=== PATIENT | female | born 1960 | race Caucasian/White ===

== ENCOUNTER → 2020-04-09 13:47 | Outpatient (BNVA) | payer OTHER, SELFPAY | PROVIDERS: PCP Internal Medicine Geriatric Medicine; Visit Provider Surgery | DX: Z76.89 Persons encountering health services in other specified circumstances (principal) ==

== ENCOUNTER → 2020-05-27 10:11 | Outpatient (BNVA) | payer OTHER, SELFPAY | PROVIDERS: PCP Internal Medicine Geriatric Medicine; Visit Provider Physician Assistant | DX: Z76.89 Persons encountering health services in other specified circumstances (principal) ==

== ENCOUNTER 2020-05-27 10:40 | Outpatient (REF) | payer OTHER, SELFPAY ==
[2020-05-31 19:07] LABS: Vitamin A 34 mcg/dL (38-98)
== END 2020-05-27 10:41 | disposition home or self-care (01) ==
LOC: HO.LAB 10:40
PROVIDERS: Visit Provider Surgery
DX: Z01.818 Encounter for other preprocedural examination (principal); E66.9 Obesity, unspecified; Z68.35 Body mass index [BMI] 35.0-35.9, adult; E50.9 Vitamin A deficiency, unspecified
CPT/HCPCS: 84590

== ENCOUNTER 2020-05-31 10:02 | Outpatient (REF) | payer OTHER, SELFPAY ==
--- NOTE | 2020-05-31 10:06 | ECG_ITS ---
Test Reason : SOB Blood Pressure : / mmHG Vent. Rate : 069 BPM Atrial Rate : 069 BPM P-R Int : 180 ms QRS Dur : 076 ms QT Int : 380 ms P-R-T Axes : 079 051 049 degrees QTc Int : 407 ms Normal sinus rhythm Normal ECG When compared with ECG of 21-NOV-2019 12:04, No significant change was found Referred By: Wendy Guerrero Electronically Signed By:ELIUD SEBASTIAN MD
[2020-05-31 10:37] LABS: MANUAL DIFF FLAG NO
[2020-05-31 10:41] LABS: Basophils Absolute Auto 0.1 X10*3/uL (0.0-0.2); Basophils Percent Auto 1.4 % (0-2); Eosinophils Absolute Auto 0.1 X10*3/uL (0.0-0.4); Eosinophils Percent Auto 1.4 % (0-4); Hematocrit 44.3 % (37-47); Hemoglobin 14.1 g/dl (12.0-16.0); Imm Gran Abs Auto 0.01 X10*3/uL (0.00-0.03); Imm Gran Pct Auto 0.2 % (0.0-0.4); Lymphocytes Percent Auto 35.7 % (20-40); Mean Corpuscular HGB Conc 31.8 g/dl (31.0-35.0); Mean Corpuscular Hemoglobin 30.3 pg (27.0-33.0); Mean Corpuscular Volume 95.3 fL (80-98); Mean Platelet Volume 10.7 fL (9.4-12.3); Monocytes Absolute Auto 0.6 X10*3/uL (0.1-1.2); Monocytes Percent Auto 10.6 % (2-11); Neutrophils Absolute Auto 2.9 X10*3/uL (2.0-8.3); Neutrophils Percent Auto 50.7 % (45-73); Platelet Count 321 X10*3/uL (160-400); Red Blood Count 4.65 X10*6/uL (4.20-5.50); Red Cell Distribution Width 13.6 % (11.0-16.0); White Blood Count 5.7 X10*3/uL (4.8-10.8)
[2020-05-31 11:09] LABS: Albumin Level 4.4 g/dL (3.5-5.0); Anion Gap 11 (12-20); Blood Urea Nitrogen 18 mg/dL (9-16); Calcium 9.4 mg/dL (8.4-10.2); Carbon Dioxide 30 mmol/L (22-29); Chloride 103 mmol/L (96-108); Estimated Glomerular Filt Rate > 60; Glucose Random 79 mg/dL (60-115); Potassium 4.3 mmol/l (3.3-5.1); Sodium 140 mmol/L (135-145)
[2020-05-31 11:20] LABS: Glucose Urine UA NEG (NEG); Leukocyte Esterase Urine 2+ (NEG); Nitrite Urine NEG (NEG); Urine Blood NEG (NEG); Urine Ketones NEG (NEG); Urine Protein NEG (NEG-TRACE)
[2020-05-31 11:22] LABS: Appearance Urine HAZY; Color Urine YELLOW
[2020-05-31 11:53] LABS: Estimated Average Glucose 105 mg/dL; Hemoglobin A1c % 5.3 %
[2020-05-31 11:57] LABS: Bacteria Urine TRACE /LPF; Mucus Urine TRACE /LPF; RBC Urine 0-2 /HPF (0); Renal Epithelial Cells Urine TRACE /LPF; Squamous Epithelial Cell Urine 1+ /LPF
== END 2020-05-31 10:03 | disposition home or self-care (01) ==
LOC: HO.LAB 10:02
PROVIDERS: PCP Internal Medicine Geriatric Medicine; Visit Provider Surgery
DX: Z01.818 Encounter for other preprocedural examination (principal); R06.02 Shortness of breath
CPT/HCPCS: 36415; 80048; 81001; 81003; 82040; 83036; 85025; 87086; 93005

== ENCOUNTER 2020-06-05 10:18 | Inpatient (IN) | payer OTHER, SELFPAY ==
[2020-05-31 11:44] VITALS: BP 139/74; PULSE 74; RESP 16; O2SAT 97; BMI 34.8
--- NOTE | 2020-05-31 12:08 | HO.ANESPROP2 ---
Documented by User: Amparo Gibson 05/31/20 12:23 HPI - Anesthesia Eval Consult details Narrative: 59yo F for Gastrectomy Sleeve PMFSH Past Medical History Medical History (Updated 05/31/20 @ 12:36 by Leonora Meneses) Asthma History of GI bleed History of left breast cancer History of sprain of ankle Obesity (BMI 30-39.9) Osteopenia Family History Family History Father Type 2 diabetes mellitus Mother ALS (amyotrophic lateral sclerosis) Brother No problems noted. Sister Hypothyroidism Maternal Grandfather Colon cancer Paternal Aunt Breast cancer Maternal Aunt Thyroid cancer Skin cancer Maternal Aunt Breast cancer Family history of problems with anesthesia: No Surgical History Surgical History (Updated 05/31/20 @ 12:36 by Leonora Meneses) History of classical section History of colonoscopy History of esophagogastroduodenoscopy (EGD) History of lumpectomy of left breast History of Problems with Anesthesia: No (No previous GA) Social History Social History (Updated 05/31/20 @ 12:06 by Leonora Meneses) Alcohol intake: never Smoking Status: Never smoker Narrative Narrative: No recent illness. >4mets with exercise prior to recent ankle injury. Meds Allergies Allergy/AdvReac Type Severity Reaction Status Date / Time No Known Allergies Allergy Verified 05/31/20 12:02 Home Medications Medication Instructions Recorded Confirmed Type ascorbic acid (vitamin C) 1,000 mg 500 mg PO DAILY 04/09/20 05/31/20 History tablet calcium carbonate 500 mg calcium 500 mg PO BID 04/09/20 05/31/20 History (1,250 mg) tablet cholecalciferol (vitamin D3) 25 25 mcg PO DAILY 04/09/20 05/31/20 History mcg (1,000 unit) capsule vitamin A acetate 10,000 unit 10,000 unit PO DAILY tab 04/09/20 05/31/20 History sublingual tablet albuterol sulfate [ProAir HFA] 2 puff INHALATION QID PRN 05/31/20 05/31/20 History Exam Exam Date and Time: May 31, 2020 1208 Height,Weight and Vital Signs: Height 5 ft 4 in Weight 92 kg Last Vital Signs Pulse 74 05/31/20 11:44 Resp 16 05/31/20 11:44 BP 139/74 12/04/20 11:44 Pulse Ox 97 05/31/20 11:44 Pertinent Lab Results Pertinent Lab Results: Laboratory Tests 05/31/20 10:20 Blood Type A Positive Antibody Screen NEGATIVE Laboratory Tests 05/31/20 05/31/20 Unknown Unknown WBC 5.7 Hgb 14.1 Hct 44.3 Plt Count 321 Sodium 140 Potassium 4.3 Chloride 103 Carbon Dioxide 30 H BUN 18 H Creatinine 0.57 Laboratory Tests 05/31/20 05/31/20 10:48 Unknown Hemoglobin A1c % 5.3 Calcium 9.4 Albumin 4.4 Narrative Narrative: EKG 05/31/20: NSR Airway Mallampati Class: II TM Dist: >3cm Neck ROM: Full Loose/Missing/Broken Teeth: No Heart: RRR Lungs: CTAB Assessment and Plan Assessment Anesthesia Assessment: Anesthesia Plan Discussed and PAT Visit Documented by User: Tiffanie Santamaria 06/05/20 08:20 [facility] Past Medical History Medical History (Updated 05/31/20 @ 12:36 by Leonora Meneses) Asthma History of GI bleed History of left breast cancer History of sprain of ankle Obesity (BMI 30-39.9) Osteopenia Family History Family History Father Type 2 diabetes mellitus Mother ALS (amyotrophic lateral sclerosis) Brother No problems noted. Sister Hypothyroidism Maternal Grandfather Colon cancer Paternal Aunt Breast cancer Maternal Aunt Thyroid cancer Skin cancer Maternal Aunt Breast cancer Surgical History Surgical History (Updated 05/31/20 @ 12:36 by Leonora Meneses) History of classical section History of colonoscopy History of esophagogastroduodenoscopy (EGD) History of lumpectomy of left breast Social History Social History (Updated 05/31/20 @ 12:06 by Leonora Meneses) Alcohol intake: never Smoking Status: Never smoker Meds Allergies Allergy/AdvReac Type Severity Reaction Status Date / Time No Known Allergies Allergy Verified 05/31/20 12:02 Home Medications Medication Instructions Recorded Confirmed Type ascorbic acid (vitamin C) 1,000 mg 500 mg PO DAILY 04/09/20 05/31/20 History tablet calcium carbonate 500 mg calcium 500 mg PO BID 04/09/20 05/31/20 History (1,250 mg) tablet cholecalciferol (vitamin D3) 25 25 mcg PO DAILY 04/09/20 05/31/20 History mcg (1,000 unit) capsule vitamin A acetate 10,000 unit 10,000 unit PO DAILY tab 04/09/20 05/31/20 History sublingual tablet albuterol sulfate [ProAir HFA] 2 puff INHALATION QID PRN 05/31/20 05/31/20 History Assessment and Plan Assessment Anesthesia Assessment: Anesthesia Plan Discussed and Chart Reviewed Final Anesthetic Review NPO: Yes ASA Class: II Final Preanesthetic Review: Meds/Allgs Chart Reviewed and Consent Obtained/Reviewed Patient Risk: Low Procedure Risk: Intermediate Anesthetic Plan Anesthetic Plan: GA Disposition: Standard PACU
--- NOTE | 2020-06-04 17:24 | MHC.SHP ---
Pre-Procedural Eval Section B Chief Complaint: morbid obesity Allergies: Allergies Allergy/AdvReac Type Severity Reaction Status Date / Time No Known Allergies Allergy Verified 05/31/20 12:02 Plan Patient has been examined and remains a candidate for the planned procedure
[2020-06-05] VITALS (14 sets, daily range): BP systolic 128–163; BP diastolic 65–82; PULSE 58–84; RESP 16–20; TEMP 36–37; O2SAT 95–100
[2020-06-05 07:59] LABS: COVID-19 Test Negative (Negative)
--- NOTE | 2020-06-05 08:20 | HO.ANESPROP2 ---
[facility] Past Medical History Medical History (Updated 05/31/20 @ 12:36 by Leonora Meneses) Asthma History of GI bleed History of left breast cancer History of sprain of ankle Obesity (BMI 30-39.9) Osteopenia Family History Family History Father Type 2 diabetes mellitus Mother ALS (amyotrophic lateral sclerosis) Brother No problems noted. Sister Hypothyroidism Maternal Grandfather Colon cancer Paternal Aunt Breast cancer Maternal Aunt Thyroid cancer Skin cancer Maternal Aunt Breast cancer Surgical History Surgical History (Updated 05/31/20 @ 12:36 by Leonora Meneses) History of classical section History of colonoscopy History of esophagogastroduodenoscopy (EGD) History of lumpectomy of left breast Social History Social History (Updated 05/31/20 @ 12:06 by Leonora Meneses) Alcohol intake: never Smoking Status: Never smoker Meds Allergies Allergy/AdvReac Type Severity Reaction Status Date / Time No Known Allergies Allergy Verified 05/31/20 12:02 Home Medications Medication Instructions Recorded Confirmed Type ascorbic acid (vitamin C) 1,000 mg 500 mg PO DAILY 04/09/20 05/31/20 History tablet calcium carbonate 500 mg calcium 500 mg PO BID 04/09/20 05/31/20 History (1,250 mg) tablet cholecalciferol (vitamin D3) 25 25 mcg PO DAILY 04/09/20 05/31/20 History mcg (1,000 unit) capsule vitamin A acetate 10,000 unit 10,000 unit PO DAILY tab 04/09/20 05/31/20 History sublingual tablet albuterol sulfate [ProAir HFA] 2 puff INHALATION QID PRN 05/31/20 05/31/20 History Exam Exam Date and Time: June 05, 2020 0820 Height,Weight and Vital Signs: Height 5 ft 4 in Weight 92 kg Last Vital Signs Temp 97.9 F 06/05/20 08:04 Pulse 69 06/05/20 08:04 Resp 16 06/05/20 08:04 BP 152/71 H 06/05/20 08:04 Pulse Ox 98 06/05/20 08:04 Pertinent Lab Results Pertinent Lab Results: Laboratory Tests 05/31/20 06/05/20 10:20 07:30 COVID-19 ([facility]ERA) Negative COVID-19 Clin Com See Note Blood Type A Positive Antibody Screen NEGATIVE Assessment and Plan Assessment Anesthesia Assessment: Anesthesia Plan Discussed and Chart Reviewed Final Anesthetic Review ASA Class: II Final Preanesthetic Review: Meds/Allgs Chart Reviewed, Consent Obtained/Reviewed and Anes Risks/Benef Reviewed Patient Risk: Low Procedure Risk: Intermediate Anesthetic Plan Anesthetic Plan: GA Disposition: Standard PACU
[2020-06-05] MEDS: Lactated Ringers 1,000 ML 100 ML IVCONT (08:38)
--- NOTE | 2020-06-05 11:43 | P.OP_ITS ---
Operative Note Operative Note Date of Service: 06/05/20 Narrative: Patient was brought into the operating room and placed on the operating room table in the supine position. General anesthesia was induced. Normal DVT prophylaxis was instituted and the patient received 2 grams of cefotetan preoperatively. The abdomen was then prepped and draped in the normal sterile fashion. A safety time-out was performed. A mixture of 1% lidocaine with epinephrine and ??% Marcaine plain was used to a nesthetize the planned incision site in the left upper quadrant. A #11 scalpel was used to make a 5 mm left upper quadrant transverse incision through which a veress needle was placed. Three pops were heard going through the fascia. A saline drop test was used to confirm that the veress needle was intraabdominal. An optiview technique was then used to place a 5mm port in the left upper quadrant. A 5 mm 30 degree laproscope was then placed through this port and the abdominal cavity was surveyed and was normal. The patient was placed in reverse Trendelenburg positioning. A dory liver retractor was then placed in the subxyphoid position and it was used to hold up the left lobe of the liver to the abdominal wall. This was secured to the bed using the liver retractor meadows. A HERIBERTO block was then performed for pain control on the right side of the abdomen. A 5 mm port was placed in the right upper quadrant near the falciform ligament. A 12 mm port was then placed in the mid epigastrium. One additional 5 mm port was placed in the left upper quadrant just to the left of the placement of the first port. I then performed a HERIBERTO block on the left side of the abdomen. We were able to easily visualize a large paraesophageal hernia with a portion of the stomach in the chest. I then removed the epigastric fat pad . We cleared the free no esophageal ligament circumferentially. We placed 1/3 of a Kavita drain around the GE junction and secured the 2 ends using a Endo loop. Once we visualized the crura posteriorly we reapproximated the right and left crura posteriorly with a total of 220 Ethibond sutures. We then reapproximated the anterior crura with 220 Ethibond sutures. There was no residual hiatal hernia. We then gained entry into the lesser sac about 4-5 cm from the pylorus. I had anesthesia place a 34 Togolese orogastric tube into the distal antrum to use as a sizing tool for gastric pouch size. I divided the short gastric vessels up to the angle of His. We then started the creation of the gastric pouch by firing a 60 mm purple load endostapler up the stomach about 4-5 cm from the pylorus. We completed the creation of the gastric pouch using a total of 4 firings of a 60 mm and 1 firing of a 45 mm purple load stapler. We had anesthesia remove the orogastric tube, then we clamped across the distal antrum using a fired 60 mm endostapler. We flattened the patient and then instilled normal saline surrounding the newly created staple line. I then performed an on-table endoscopy. I passed the gastroscopy into the posterior oropharynx and down the esophagus evaluating the esophageal mucosa which was normal. There was no evidence of hiatal hernia. I passed the gastroscope into the gastric pouch and insufflated the gastric pouch. There was healthy pink mucosa and no evidence of active bleeding. There was no evidence of leak on laparoscopy. I desufflated the gastric pouch and removed the endoscope. I removed the endostapler from the abdomen and suctioned the fluid from the left upper quadrant. I then removed the partial gastrectomy specimen through the epigastric 12 mm port site. I reapproximated the 12 mm port using a 0 maxon suture with a laparoscopic suture passer. I instilled local anesthetic into the fascial closure site and tied the suture down at a pressure of 8-10 mm of Hg. There was no residual fascial defect. We removed the liver retractor and the left upper quadrant 5 mm ports under direct visualization. There was no evidence of any active bleeding. I desufflated the abdomen through the last remaining port and removed the laparoscope and 5 mm port. We reapproximated all incisions with a 4-0 monocryl subcuticular stitch. We cleaned and dried the abdominal skin and applied dermabond skin glue. All count were correct at the end of the case. The patient was awake and in stable condition prior to extubation and transfer to the recovery room.
--- NOTE | 2020-06-05 11:48 | P.BOP_ITS ---
Brief Operative Note Date of Service: 06/05/20 Pre-op diagnosis: obesity BMI 34.8 and history of left breast cancer Post-op diagnosis: other ( same and large paraesophageal hernia) Procedure: laparoscopic sleeve gastrectomy, repair of large paraesophageal hernia, Jermain block, and intraoperative endoscopy Implants: none Surgeon: Wendy Guerrero MD Anesthesia: GETA Dieing Out Machine Operator: Ava Adan Estimated blood loss (mL): 10 Pathology: other ( partial gastrectomy) Condition: stable Disposition: PACU
[2020-06-05] MEDS: Famotidine/PF 20 MG/2 ML VIAL IVPUSH ×2 (12:14→21:09)
[2020-06-05] MEDS: ondansetron HCL 4 MG/2 ML VIAL IVPUSH ×2 (13:03→21:09)
[2020-06-05] MEDS: Metoclopramide HCl 10 MG/2 ML VIAL IVPUSH (13:03)
[2020-06-05] MEDS: Lactated Ringers 1,000 ML 125 ML IVCONT ×2 (13:52→21:07)
[2020-06-05 15:05] LABS: Basophils Percent Auto 0.2 % (0-2); Hematocrit 41.7 % (37-47); Hemoglobin 13.2 g/dl (12.0-16.0); Imm Gran Abs Auto 0.08 X10*3/uL (0.00-0.03); Imm Gran Pct Auto 0.5 % (0.0-0.4); Lymphocytes Absolute Auto 0.6 X10*3/uL (1.2-4.9); Lymphocytes Percent Auto 3.8 % (20-40); MANUAL DIFF FLAG SCAN; Mean Corpuscular HGB Conc 31.7 g/dl (31.0-35.0); Mean Corpuscular Hemoglobin 30.7 pg (27.0-33.0); Mean Platelet Volume 10.3 fL (9.4-12.3); Monocytes Absolute Auto 0.4 X10*3/uL (0.1-1.2); Monocytes Percent Auto 2.9 % (2-11); Neutrophils Absolute Auto 13.9 X10*3/uL (2.0-8.3); Neutrophils Percent Auto 92.6 % (45-73); Platelet Count 309 X10*3/uL (160-400); Red Cell Distribution Width 13.6 % (11.0-16.0); SCAN SMEAR FLAG 1
[2020-06-05 15:32] LABS: SLIDE REVIEW VERIFIED
[2020-06-05 15:35] LABS: Anion Gap 16 (12-20); Blood Urea Nitrogen 15 mg/dL (9-16); Calcium 8.7 mg/dL (8.4-10.2); Carbon Dioxide 26 mmol/L (22-29); Chloride 102 mmol/L (96-108); Creatinine Clr Calc Pharmacy 102.1; Estimated Glomerular Filt Rate > 60; Glucose Random 138 mg/dL (60-115); Potassium 3.9 mmol/l (3.3-5.1); Sodium 140 mmol/L (135-145)
[2020-06-05] MEDS: 0.9 % Sodium Chloride Flush 3 ML SYRINGE IVFLUSH (21:09)
[2020-06-06 03:13] VITALS: BP 153/72; PULSE 69; RESP 19; TEMP 36.3; O2SAT 95
[2020-06-06 04:25] LABS: MANUAL DIFF FLAG NO
[2020-06-06 04:26] LABS: Basophils Percent Auto 0.2 % (0-2); Hematocrit 36.2 % (37-47); Hemoglobin 11.7 g/dl (12.0-16.0); Imm Gran Abs Auto 0.04 X10*3/uL (0.00-0.03); Imm Gran Pct Auto 0.3 % (0.0-0.4); Lymphocytes Percent Auto 16.1 % (20-40); Mean Corpuscular HGB Conc 32.3 g/dl (31.0-35.0); Mean Corpuscular Hemoglobin 30.6 pg (27.0-33.0); Mean Corpuscular Volume 94.8 fL (80-98); Mean Platelet Volume 10.4 fL (9.4-12.3); Monocytes Absolute Auto 1.5 X10*3/uL (0.1-1.2); Monocytes Percent Auto 12.1 % (2-11); Neutrophils Absolute Auto 8.8 X10*3/uL (2.0-8.3); Neutrophils Percent Auto 71.3 % (45-73); Platelet Count 291 X10*3/uL (160-400); Red Blood Count 3.82 X10*6/uL (4.20-5.50); Red Cell Distribution Width 13.5 % (11.0-16.0); White Blood Count 12.4 X10*3/uL (4.8-10.8)
[2020-06-06] MEDS: ondansetron HCL 4 MG/2 ML VIAL IVPUSH (04:39)
[2020-06-06 04:45] LABS: Anion Gap 13 (12-20); Blood Urea Nitrogen 9 mg/dL (9-16); Calcium 8.5 mg/dL (8.4-10.2); Carbon Dioxide 27 mmol/L (22-29); Chloride 103 mmol/L (96-108); Creatinine Clr Calc Pharmacy 129.5; Estimated Glomerular Filt Rate > 60; Glucose Random 98 mg/dL (60-115); Potassium 4.2 mmol/l (3.3-5.1); Sodium 139 mmol/L (135-145)
[2020-06-06] MEDS: Lactated Ringers 1,000 ML 125 ML IVCONT (05:48)
[2020-06-06] MEDS: Famotidine/PF 20 MG/2 ML VIAL IVPUSH (07:55)
[2020-06-06 08:00] VITALS: BP 142/65; PULSE 78; RESP 19; TEMP 36.7; O2SAT 94
--- NOTE | 2020-06-06 09:51 | HO.POSTANES ---
Post Anesthesia Evaluation Post Anesthesia Evaluation Vital Signs: Vital Signs Temp Pulse Resp BP Pulse Ox 06/06/20 08:00 98.1 F 78 19 142/65 H 94 06/06/20 03:13 97.4 F 69 19 153/72 H 95 06/05/20 23:52 98.6 F 77 19 163/73 H 96 Anesthesia: General Endotracheal-GETA Mental Status: Awake Pain Control: Satisfactory Nausea/Vomiting: None Hydration: Adequate Anesthesia-Related Issues: No Anes. Related Issues
--- NOTE | 2020-06-06 10:26 | PM.PNGS ---
Subjective Subjective Date of Service: 06/06/20 Interval history: Pod #1 s/p lap sleeve gastrectomy and paraesophageal hernia repair. Doing well. Tolerating stage 3 diet, ambulating in hallway. Pain well controlled. Denies nausea or vomiting. Vitals and labs reviewed and are within limit for post op day 1. On exam, patient is well appearing, abdomen is soft, nd, mild appropriate incisional tenderness. Incisions c/d/I with dermabond in place. Plan: d/c home today. Follow up with me in 2 weeks. Physical Exam Vital Signs: Vital Signs: Last Vital Signs Temp 98.1 F 06/06/20 08:00 Pulse 78 06/06/20 08:00 Resp 19 06/06/20 08:00 BP 142/65 H 06/06/20 08:00 Pulse Ox 94 06/06/20 08:00 Body Mass Index 34.8 Const: General: cooperative, healthy appearing, comfortable, no acute distress and awake GI: Inspection: Yes incision (c/d/i with dermabond in place) and Yes obesity Palpation (GI): Soft to palpation and Tenderness to palpation present (GI) (mild appropriate) Extrem: General: Yes normal to inspection, Yes no pedal edema and Yes no calf tenderness Progress Note: A&P Assessment and plan (1) History of sleeve gastrectomy: Status: Acute Assessment and Plan: Patient is postop day 1. Status post laparoscopic sleeve gastrectomy and paraesophageal hernia repair doing well tolerating stage III diet. Patient will be discharged home to follow up with me in 2 weeks time frame. (2) Status post repair of paraesophageal diaphragmatic hernia: Status: Acute Fall Risk Details Current Medications: Current Medications Generic Name Dose Route Start Last Admin Trade Name Freq PRN Reason Stop Dose Admin Albuterol Sulfate 2 puff 06/05/20 11:52 Albuterol Sulfate 90 Mcg 8 Gm Inhaler INHALE QID PRN wheezing Famotidine 20 mg 06/05/20 12:00 06/06/20 07:55 Famotidine/Pf 20 Mg/2 Ml Vial IVPUSH 20 mg BID CHRISTIAN Administration Fentanyl 50 mcg 06/05/20 08:27 Fentanyl Citrate/Pf 100 Mcg/2 Ml Vial IVPUSH Q5M PRN Pain, Severe (Pain Scale 7-10) Fentanyl 25 mcg 06/05/20 08:27 Fentanyl Citrate/Pf 100 Mcg/2 Ml Vial IVPUSH Q5M PRN Pain, Moderate (Pain Scale 4-6 Hydromorphone HCl 0.25 mg 06/05/20 11:44 Hydromorphone Hcl 0.5 Mg/0.5 Ml Syringe IVPUSH Q4H PRN Pain, Moderate (Pain Scale 4-6 Lactated Ringer's 1,000 mls @ 125 mls/hr 06/05/20 07:30 06/06/20 05:48 Lr IVCONT 125 mls/hr .Q8H CHRISTIAN Administration Acetaminophen 1,000 mg in 100 mls @ 16.7 mls/hr 06/05/20 11:45 06/06/20 09:30 Ofirmev IV Infused .Q6H CHRISTIAN Infusion Metoclopramide HCl 10 mg 06/05/20 11:44 06/05/20 13:03 Metoclopramide Hcl 10 Mg/2 Ml Vial IVPUSH 10 mg Q6H PRN Administration Nausea Ondansetron HCl 4 mg 06/05/20 11:45 06/06/20 04:39 Ondansetron Hcl 4 Mg/2 Ml Vial IVPUSH 4 mg Q8H CHRISTIAN Administration Sodium Chloride 3 ml 06/05/20 16:00 06/06/20 07:13 0.9 % Sodium Chloride Flush 3 Ml Syringe IVFLUSH Not Given QSHIFT CHRISTIAN Time Spent With Patient Time: Total time spent is greater than 50% in coordination of care (as documented) at patient's floor/unit and/or counseling patient: Time with patient: less than 15 minutes
--- NOTE | 2020-06-06 11:11 | MHC.CM.PN ---
ADMITTED S/P GASTRIC SLEEVE AND HERNIA REPAIR, DSISCHARGE PLAN HOME W/NO SERVICES, TO TRANSPORT. CM TO UPDATE PCP
--- NOTE | 2020-06-06 11:52 | MHC.CM.PN ---
DISCHARGE NOTE: PT DISCHARGED HOME/ SELF-CARE
--- NOTE | 2020-06-25 11:16 | PM.DS ---
DS: Providers Provider Date of admission: 06/05/20 10:18 Primary care physician: Enedina Antunez DS: Diagnosis Discharge Diagnosis (1) History of sleeve gastrectomy: Status: Acute Problem details: with hiatal hernia repair - 06/05/2020 (2) Status post repair of paraesophageal diaphragmatic hernia: Status: Acute DS: Medications Discharge Medications Home Medications: Home Medications Medication Instructions Recorded Confirmed albuterol sulfate [ProAir HFA] 2 puff INHALATION QID PRN 05/31/20 06/18/20 calcium citrate 1,000 mg tablet 1,000 mg PO BID tab 06/18/20 06/18/20 DS: Summary Time Spent with Patient Time attestation: DATE OF SERVICE: June 05, 2020 ADMITTING DIAGNOSES: morbid obesity and hiatal hernia DISCHARGE DIAGNOSES: same PROCEDURE PERFORMED: s/p laparoscopic sleeve gastrectomy and repair of hiatal hernia DISCHARGE MEDICATIONS: 1. Simethicone 80mg q4h prn gas 2. Ondansetron 4mg po tid prn nausea 3. Famotidine 20mg po bid 4. Docusate sodium 100mg po bid DISCHARGE INSTRUCTIONS: The patient should continue on the stage III bariatric diet, which includes 3 protein shakes of at least 20- 30g of protein on a daily basis. The patient was encouraged to avoid drinking liquids with her protein shakes. She should wait 30-45 minutes in between her meals and drinking water. She should drink at least 40-60 ounces of water on a daily basis. She should ambulate while at home to avoid any blood clots in her lower extremities. She should call with any questions or concerns such as increase in abdominal pain, persistent nausea, vomiting, redness and drainage from her incisions, fever, chills, shortness of breast, or chest pain beyond what is normal for her. The patient should avoid all heavy lifting greater than 5 pounds for the next 4 weeks. The patient is already scheduled to follow up with me in 2 weeks' time, but should call the office with any questions prior to that follow up appointment. The patient should not advance her diet until she is seen in the office for the 2 week appointment. HOSPITAL COURSE: The patient was admitted after undergoing laparoscopic sleeve gastrectomy. She was started on stage II diet and was tolerating well without nausea or vomiting. Her pain was controlled on IV Dilaudid. All labs were within normal limits. On post-operative day #2 she was feeling better, nausea and epigastric pain improved and she was tolerating stage III bariatric diet well. She was discharged home. DISCHARGE DISPOSITION: Home.Total time spent providing and/or coordinating discharge services: 30 minutes Physical Exam Vital Signs: Vital Signs: Last Vital Signs Temp 98.1 F 06/06/20 08:00 Pulse 78 06/06/20 08:00 Resp 19 06/06/20 08:00 BP 142/65 H 06/06/20 08:00 Pulse Ox 94 06/06/20 08:00 Body Mass Index 34.8 DS: Data Data Completed and Pending Completed studies during hospitalization [Text1]: Pending at discharge 06/05/20 10:04 Surgical [PTH] Routine Procedures Excision of Stomach, Percutaneous Endoscopic Approach, Vertical (06/05/20) Repair Diaphragm, Percutaneous Endoscopic Approach (06/05/20) Labs on day of discharge: 05/31/20 10:20 Type and Screen Routine 06/05/20 07:25 Acetaminophen [Ofirmev] 1,000 mg in 100 ml IV PREOP Albuterol Sulfate (0.083%) [Ventolin (0.083%)] 2.5 mg INHALE ONCE PRN cefoTEtan disod/Dextrose,Iso [Cefotan] 2 gm in 50 ml IV PREOP 06/05/20 07:30 COVID-19 ID NOW (Ramirez) Stat Lactated Ringers [Lr] 1,000 ml IVCONT 100 mls/hr Lactated Ringers [Lr] 1,000 ml IVCONT 125 mls/hr 06/05/20 08:07 cefoTEtan disodium [Cefotan] 2 gm .ROUTE .STK-MED ONE 06/05/20 08:08 Acetaminophen [Ofirmev] 1,000 mg in 100 ml IV As directed 06/05/20 08:27 Continuous pulse oximetry CONT Oxygen administration Simple Mask 6 lpm Vital Signs Q1H Vital Signs Q5MIN Acetaminophen [Tylenol] 650 mg PO ONCE PRN Albuterol Sulfate (0.083%) [Ventolin (0.083%)] 2.5 mg INHALE ONCE PRN Promethazine HCL [Phenergan] 6.25 mg 0.9 % Sodium Chloride [Ns] 50 ml IV ONCE fentaNYL citrate/PF [Sublimaze] 25 mcg IVPUSH Q5M PRN fentaNYL citrate/PF [Sublimaze] 50 mcg IVPUSH Q5M PRN oxyCODONE HCl Immed Release [Roxicodone] 10 mg PO ONCE PRN oxyCODONE HCl Immed Release [Roxicodone] 5 mg PO ONCE PRN 06/05/20 08:47 Ketamine HCl/NS 50 mg IVPUSH .STK-MED ONE Lidocaine HCl 2 % MPF [Xylocaine 2 % MPF] 5 ml .ROUTE .STK-MED ONE Midazolam HCl/PF [Versed] 2 mg .ROUTE .STK-MED ONE Rocuronium [place] [Zemuron] 100 mg IV .STK-MED ONE dexAMETHasone sod phosphate [Decadron] 4 mg .ROUTE .STK-MED ONE fentaNYL citrate/PF [Sublimaze] 50 mcg .ROUTE .STK-MED ONE ondansetron HCL [Zofran] 4 mg .ROUTE .STK-MED ONE propofoL [Diprivan] 200 mg IVPUSH .STK-MED ONE 06/05/20 08:48 Sugammadex Sodium [Bridion] 200 mg IVPUSH .STK-MED ONE Transfer Order Routine 06/05/20 08:51 Bupivacaine MPF 0.25 % [Sensorcaine-MPF 0.25% 10 ML] 10 ml .ROUTE .STK-MED ONE Lidocaine HCl 1%/Epi 1:100,000 [Xylocaine 1 %-Epi 1:100,000] 20 ml .ROUTE .STK-MED ONE 06/05/20 09:21 fentaNYL citrate/PF [Sublimaze] 50 mcg .ROUTE .STK-MED ONE 06/05/20 Breakfast NPO Diet 06/05/20 10:04 Surgical [PTH] Routine 06/05/20 11:44 Ambulate Q4H WHILE AWAKE Compression Therapy QSHIFT Head of bed elevation DIRECTED Incentive Spirometry Q1HR WHILE AWAKE Intake and Output Q4HR Up ad jeyson .Continous Vital Signs Q4H Code Status Routine HYDROmorphone HCl [Dilaudid] 0.25 mg IVPUSH Q4H PRN Metoclopramide HCl [Reglan] 10 mg IVPUSH Q6H PRN 06/05/20 11:45 Acetaminophen [Ofirmev] 1,000 mg in 100 ml IV 16.7 mls/hr ondansetron HCL [Zofran] 4 mg IVPUSH Q8H 06/05/20 11:52 Albuterol Sulfate [Ventolin] 2 puff INHALE QID PRN 06/05/20 11:56 Promethazine HCL [Phenergan] 25 mg IV .STK-MED ONE 06/05/20 11:57 Famotidine/PF [Pepcid/PF] 20 mg IVPUSH .STK-MED ONE 06/05/20 12:00 Famotidine/PF [Pepcid/PF] 20 mg IVPUSH BID 06/05/20 13:01 Metoclopramide HCl [Reglan] 10 mg .ROUTE .STK-MED ONE ondansetron HCL [Zofran] 4 mg .ROUTE .STK-MED ONE 06/05/20 14:46 Basic Metabolic Panel DAILY@0500 Complete Blood Count Auto Diff DAILY@0500 SLIDE REVIEW Routine 06/05/20 Lunch Bariatric Phase 2 Diet 06/05/20 16:00 0.9 % Sodium Chloride Flush [NS Flush] 3 ml IVFLUSH QSHIFT 06/05/20 20:59 cefoTEtan disodium [Cefotan] 2 gm .ROUTE .STK-MED ONE 06/05/20 21:00 cefoTEtan disodium [Cefotan] 2 gm 0.9 % Sodium Chloride [Ns] 100 ml IV POSTOP@2100 06/06/20 04:08 Basic Metabolic Panel DAILY@0500 Complete Blood Count Auto Diff DAILY@0500 Laboratory Last Values WBC 12.4 X10*3/uL (4.8-10.8) H 06/06/20 04:08 RBC 3.82 X10*6/uL (4.20-5.50) L 06/06/20 04:08 Hgb 11.7 g/dl (12.0-16.0) L 06/06/20 04:08 Hct 36.2 % (37-47) L 06/06/20 04:08 MCV 94.8 fL (80-98) 06/06/20 04:08 MCH 30.6 pg (27.0-33.0) 06/06/20 04:08 MCHC 32.3 g/dl (31.0-35.0) 06/06/20 04:08 RDW 13.5 % (11.0-16.0) 06/06/20 04:08 Plt Count 291 X10*3/uL (160-400) 06/06/20 04:08 MPV 10.4 fL (9.4-12.3) 06/06/20 04:08 Immature Gran % (Auto) 0.3 % (0.0-0.4) 06/06/20 04:08 Neut % (Auto) 71.3 % (45-73) 06/06/20 04:08 Lymph % (Auto) 16.1 % (20-40) L 06/06/20 04:08 [place] % (Auto) 12.1 % (2-11) H 06/06/20 04:08 Eos % (Auto) 0.0 % (0-4) 06/06/20 04:08 Baso % (Auto) 0.2 % (0-2) 06/06/20 04:08 Lymph # (Auto) 2.0 X10*3/uL (1.2-4.9) 06/06/20 04:08 [place] # (Auto) 1.5 X10*3/uL (0.1-1.2) H 06/06/20 04:08 Eos # (Auto) 0.0 X10*3/uL (0.0-0.4) 06/06/20 04:08 Baso # (Auto) 0.0 X10*3/uL (0.0-0.2) 06/06/20 04:08 Abs Immat Gran (auto) 0.04 X10*3/uL (0.00-0.03) H 06/06/20 04:08 Absolute Neuts (auto) 8.8 X10*3/uL (2.0-8.3) H 06/06/20 04:08 Absolute Nucleated RBC 0.000 X10*3/uL (0.0-0.012) 06/06/20 04:08 Nucleated RBC % (auto) 0.0 /100WBC (0.0-0.2) 06/06/20 04:08 Smear Tech's Comments VERIFIED 06/05/20 14:46 Sodium 139 mmol/L (135-145) 06/06/20 04:08 Potassium 4.2 mmol/l (3.3-5.1) 06/06/20 04:08 Chloride 103 mmol/L (96-108) 06/06/20 04:08 Carbon Dioxide 27 mmol/L (22-29) 06/06/20 04:08 Anion Gap 13 (-20) 06/06/20 04:08 BUN 9 mg/dL (9-16) 06/06/20 04:08 Creatinine 0.52 mg/dL (0.5-1.4) 06/06/20 04:08 Estim Creat Clear Calc 129.5 06/06/20 04:08 Estimated GFR > 60 06/06/20 04:08 Random Glucose 98 mg/dL (60-115) 06/06/20 04:08 Calcium 8.5 mg/dL (8.4-10.2) 06/06/20 04:08 COVID-19 (SERA) Negative (Negative) 06/05/20 07:30 COVID-19 Clin Com See Note 06/05/20 07:30 Blood Type A Positive 05/31/20 10:20 Antibody Screen NEGATIVE 05/31/20 10:20 Discharge Plan Discharge Anticipated Discharge Date/Time: 06/06/20 11:52 Patient Disposition: Home, Self-Care Referrals: Enedina Antunez [Primary Care Provider] - Discharge Medications: Continued albuterol sulfate [ProAir HFA] 90 mcg/actuation HFA aerosol inhaler 2 puff inhalation QID PRN (Reason: wheezing) RF: 0 Discontinued calcium carbonate 500 mg calcium (1,250 mg) tablet 500 mg PO BID RF: 0 cholecalciferol (vitamin D3) 25 mcg (1,000 unit) capsule 25 mcg PO DAILY RF: 0 vitamin A acetate 10,000 unit tablet, sublingual 10,000 unit PO DAILY RF: 0 ascorbic acid (vitamin C) 1,000 mg tablet 500 mg PO DAILY RF: 0 No Action calcium citrate 1,000 mg tablet 1,000 mg PO BID RF: 0 Discharge Orders: Discharge Order (Routine); Ordered 06/06/20 Ordered By: Wendy Guerrero Activity on Discharge: No heavy lifting Discharge Date/Time: 06/06/20 11:52 Activity Restrictions/Additional Instructions: No tub baths, sex or returning to work until discussed at first post op appointment. No exercise, alcohol, tobacco or illegal drug use. Continue to use incentive spirometer hourly while awake. Walk in home for 5- 10 minutes every 2 hours during the first week. Continue phase 3 diet until first post op appointment. Follow all instructions in the bariatric handbook and call with any questions.Discharge Instructions 1. Please call your doctor or come back to the emergency room should any new symptoms arise. 2. You will receive a courtesy call from [facility] 24-48 hours after discharge. 3. Activity: abstain from alcohol, practice limited stair climbing, no bending, no driving, no exercise, no illicit substances, no lifting, no sex, no tub bath, no work. 4. Diet: continue stage 3 protein shakes until your [address] Guerrero. 5. Dressing Change/Wound Care: Your incision is covered by surgical glue. If the area is tender, you may apply an ice pack for short intervals (no more than 20 minutes on, followed by at least 20 minutes off). Do not apply heat. Do not use creams, lotions, or topical antibiotics unless instructed to do so by your surgeon. These can cause infection or allergic reaction. 6. Call your doctor if: - Your temperature exceeds 101.5 F - You experience excessive pain or swelling - You have an unexpected reaction to medication - You have excessive bleeding - You experience continued vomiting/nausea - Your incision begins to separate - Your incision shows signs of infection such as increased redness, swelling, excessive pain, heat, or drainage (light blood or clear fluid is normal) 7. General instructions: No lifting greater than 5 lbs for the next [address] within 24 hours of taking narcotic pain medications. If you do not move your bowels in the next 2 days, please take milk of magnesia over the counter. Please follow the post op diet and do not advance your diet until you are seen in the office in about 2 weeks. Please walk around your home every hour or two to prevent blood clots from forming in your legs. You do not need to wake from sleeping to walk. Please sleep in a bed or couch to prevent kinking at the hips and knees. Please take your incentive spirometer (your lung regulatory law specialist) home with you and use it for the next few days to prevent pneumonias. You may shower, no hot tubs, baths or swimming pools. Please call the office with any questions or concerns such as increasing abdominal pain, fever, chills, shortness of breath, chest pain, leg pain or swelling, or redness or drainage from your incisions. Please stay on stage 3 diet which includes sugar free clear liquids such as ice pops and jello and broth and crystal light. Avoid all carbonation. Please drink 3 protein shakes with at least 25-30 grams of protein daily or 3 of the Celebrate 4:1 shakes which can be purchased in our office. The Celebrate shakes have all of the bariatric vitamins you need if you consume these shakes. If you are drinking other protein shakes, you will need to purchase the Celebrate multivitamins and calcium that we provide in the office (they will provide all the vitamins you need). Please make sure you are consuming at least 40-60 ounces of water in addition to your 3 protein shakes daily. Do not hesitate to contact the office with any questions at . DATE OF SERVICE: June 05, 2020 ADMITTING DIAGNOSES: obesity and GERD DISCHARGE DIAGNOSES: same, s/p laparoscopic sleeve gastrectomy and paraesophageal hernia repair PROCEDURE PERFORMED: laparoscopic sleeve gastrectomy and paraesophageal hernia repair DISCHARGE MEDICATIONS: 1. Simethicone 80mg q4h prn gas 2. Ondansetron 4mg po tid prn nausea 3. Famotidine 20mg po bid 4. Docusate sodium 100mg po bid DISCHARGE INSTRUCTIONS: The patient should continue on the stage III bariatric diet, which includes 3 protein shakes of at least 20- 30g of protein on a daily basis. The patient was encouraged to avoid drinking liquids with her protein shakes. She should wait 30-45 minutes in between her meals and drinking water. She should drink at least 40-60 ounces of water on a daily basis. She should ambulate while at home to avoid any blood clots in her lower extremities. She should call with any questions or concerns such as increase in abdominal pain, persistent nausea, vomiting, redness and drainage from her incisions, fever, chills, shortness of breast, or chest pain beyond what is normal for her. The patient should avoid all heavy lifting greater than 5 pounds for the next 4 weeks. The patient is already scheduled to follow up with me in 2 weeks' time, but should call the office with any questions prior to that follow up appointment. The patient should not advance her diet until she is seen in the office for the 2 week appointment. HOSPITAL COURSE: The patient was admitted after undergoing laparoscopic sleeve gastrectomy. She was started on stage II diet and was tolerating well without nausea or vomiting. Her pain was controlled on IV Dilaudid. All labs were within normal limits. On post-operative day #2 she was feeling better, nausea and epigastric pain improved and she was tolerating stage III bariatric diet well. She was discharged home. DISCHARGE DISPOSITION: Home. Visit Report Forms: Patient Portal Discharge page Care Plan Goals: weight loss Health Concerns: obesity Plan of Treatment: see discharge instructions
== END 2020-06-06 11:52 | disposition home or self-care (01) | DRG 621 ==
LOC: HO.SSSA 11:56 → HO.S3 12:26
PROVIDERS: Nurse Practitioner; Physician Assistant; Admitting Provider Surgery; Visit Provider Surgery
PROC: 0DB64Z3 Excision of Stomach, Percutaneous Endoscopic Approach, Vertical (ICD-10-PCS; CPT 43845; principal; 2020-06-05 08:30)
DX: E66.9 Obesity, unspecified (principal); Z20.828 Contact with and (suspected) exposure to other viral communicable diseases; Z68.34 Body mass index [BMI] 34.0-34.9, adult; K44.9 Diaphragmatic hernia without obstruction or gangrene
CPT/HCPCS: 36415; 80048; 85025; 86850; 86900; 86901; 87635; 88307; 88342; 99024; C1776; J0131; J1100; J2250; J2405; J2765; J3010

== ENCOUNTER → 2020-06-18 13:51 | Outpatient (BNVA) | payer OTHER, SELFPAY | PROVIDERS: Visit Provider Surgery | DX: Z76.89 Persons encountering health services in other specified circumstances (principal) ==

== ENCOUNTER → 2020-07-04 14:12 | Outpatient (BNVA) | payer OTHER, SELFPAY | PROVIDERS: Visit Provider Surgery | DX: Z76.89 Persons encountering health services in other specified circumstances (principal) ==

== ENCOUNTER → 2020-08-13 10:46 | Outpatient (BNVA) | payer OTHER, SELFPAY | PROVIDERS: PCP Internal Medicine Geriatric Medicine; Visit Provider Dietitian, Registered ==

== ENCOUNTER → 2020-09-23 13:39 | Outpatient (BNVA) | payer OTHER, SELFPAY | PROVIDERS: PCP Internal Medicine Geriatric Medicine; Visit Provider Surgery ==

== ENCOUNTER 2020-12-02 10:50 | Outpatient (REF) | payer OTHER, SELFPAY ==
[2020-12-02 12:35] LABS: MANUAL DIFF FLAG NO
[2020-12-02 12:41] LABS: Basophils Absolute Auto 0.1 X10*3/uL (0.0-0.2); Basophils Percent Auto 1.6 % (0-2); Eosinophils Absolute Auto 0.1 X10*3/uL (0.0-0.4); Eosinophils Percent Auto 1.9 % (0-4); Hematocrit 42.9 % (37-47); Hemoglobin 13.8 g/dl (12.0-16.0); Imm Gran Abs Auto 0.01 X10*3/uL (0.00-0.03); Imm Gran Pct Auto 0.2 % (0.0-0.4); Lymphocytes Absolute Auto 2.4 X10*3/uL (1.2-4.9); Lymphocytes Percent Auto 38.5 % (20-40); Mean Corpuscular HGB Conc 32.2 g/dl (31.0-35.0); Mean Corpuscular Hemoglobin 31.4 pg (27.0-33.0); Mean Corpuscular Volume 97.5 fL (80-98); Mean Platelet Volume 10.6 fL (9.4-12.3); Monocytes Absolute Auto 0.7 X10*3/uL (0.1-1.2); Monocytes Percent Auto 10.3 % (2-11); Neutrophils Percent Auto 47.5 % (45-73); Platelet Count 322 X10*3/uL (160-400); Red Cell Distribution Width 13.5 % (11.0-16.0); White Blood Count 6.3 X10*3/uL (4.8-10.8)
[2020-12-02 13:13] LABS: Estimated Average Glucose 105 mg/dL; Hemoglobin A1c % 5.3 %
[2020-12-02 13:41] LABS: Alanine Aminotransferase < 6 U/L (0-31); Albumin Level 4.4 g/dL (3.5-5.0); Alkaline Phosphatase 90 U/L (39-117); Anion Gap 13 (12-20); Aspartate Amino Transferase 20 U/L (5-31); Bilirubin Total 0.7 mg/dL (0.0-1.0); Blood Urea Nitrogen 18 mg/dL (9-16); C Reactive Protein 0.11 mg/dL (< or = 0.50); Calcium 9.7 mg/dL (8.4-10.2); Carbon Dioxide 28 mmol/L (22-29); Chloride 105 mmol/L (96-108); Cholesterol 188 mg/dL; Estimated Glomerular Filt Rate > 60; Glucose Fasting 81 mg/dL (60-99); HDL Cholesterol 83 mg/dL; Iron 102 mcg/dL (30-160); LDL Cholesterol Calculated 95 mg/dl; Percent Iron Saturation 34 % (15-50); Potassium 4.3 mmol/L (3.3-5.1); Sodium 142 mmol/L (135-145); Total Iron Binding Capacity 302 mcg/dL (228-428); Total Protein 7.4 g/dL (6.5-8.0); Triglycerides 53 mg/dL; Unsaturated Iron Binding 200 ug/dL
[2020-12-02 13:43] LABS: Vitamin B12 604 pg/mL (200-900)
[2020-12-02 13:44] LABS: Thyroid Stimulating Hormone 0.56 uIU/mL (0.32-4.0); Vitamin D 25-OH Total 42.6 ng/mL (>30)
[2020-12-05 00:36] LABS: Zinc 77 mcg/dL (60-130)
[2020-12-05 22:06] LABS: Vitamin A 36 mcg/dL (38-98)
[2020-12-06 13:26] LABS: Vitamin B1 18 nmol/L (8-30)
== END 2020-12-02 10:51 | disposition home or self-care (01) ==
LOC: HO.LAB 10:50
PROVIDERS: PCP Internal Medicine Geriatric Medicine; Visit Provider Surgery
DX: Z01.818 Encounter for other preprocedural examination (principal); K91.2 Postsurgical malabsorption, not elsewhere classified; E66.3 Overweight; Z68.26 Body mass index [BMI] 26.0-26.9, adult; Z90.3 Acquired absence of stomach [part of]
CPT/HCPCS: 36415; 80053; 80061; 82306; 82607; 83036; 83540; 84425; 84443; 84590; 84630; 85025; 86140

== ENCOUNTER → 2020-12-31 08:23 | Outpatient (BNVA) | payer OTHER, SELFPAY | PROVIDERS: PCP Internal Medicine Geriatric Medicine; Visit Provider Dietitian, Registered | DX: E66.3 Overweight (principal); Z68.26 Body mass index [BMI] 26.0-26.9, adult | CPT/HCPCS: 97803 ==

== ENCOUNTER 2021-02-24 10:15 | Outpatient (REF) | payer OTHER, SELFPAY ==
[2021-02-24 13:48] LABS: Glucose Urine UA NEG (NEG); Leukocyte Esterase Urine NEG (NEG); Nitrite Urine NEG (NEG); Specific Gravity - Urine 1.015 (1.005-1.025); Urine Blood NEG (NEG); Urine Ketones NEG (NEG); Urine Protein NEG (NEG-TRACE)
[2021-02-24 13:50] LABS: Appearance Urine CLEAR; Color Urine YELLOW
[2021-02-28 00:36] LABS: Vitamin A 31 mcg/dL (38-98)
== END 2021-02-24 10:16 | disposition home or self-care (01) ==
LOC: HO.LAB 10:15
PROVIDERS: PCP Internal Medicine Geriatric Medicine; Visit Provider Surgery
DX: Z01.818 Encounter for other preprocedural examination (principal); E50.9 Vitamin A deficiency, unspecified
CPT/HCPCS: 36415; 81003; 84590

== ENCOUNTER → 2021-03-04 13:49 | Outpatient (BNVA) | payer OTHER, SELFPAY | PROVIDERS: PCP Internal Medicine Geriatric Medicine; Visit Provider Surgery ==

== ENCOUNTER 2021-04-21 12:41 | Outpatient (REF) | payer OTHER, SELFPAY ==
[2021-04-26 01:01] LABS: Vitamin A 35 mcg/dL (38-98)
== END 2021-04-21 12:42 | disposition home or self-care (01) ==
LOC: HO.LAB 12:41
PROVIDERS: PCP Internal Medicine Geriatric Medicine; Visit Provider Surgery
DX: Z01.818 Encounter for other preprocedural examination (principal); E50.9 Vitamin A deficiency, unspecified
CPT/HCPCS: 36415; 84590

== ENCOUNTER 2021-06-02 13:52 | Outpatient (REF) | payer OTHER, SELFPAY ==
[2021-06-02 14:50] LABS: MANUAL DIFF FLAG NO
[2021-06-02 15:06] LABS: Basophils Absolute Auto 0.1 X10*3/uL (0.0-0.2); Basophils Percent Auto 1.2 % (0-2); Eosinophils Absolute Auto 0.1 X10*3/uL (0.0-0.4); Eosinophils Percent Auto 1.2 % (0-4); Hematocrit 41.3 % (37.0-47.0); Hemoglobin 13.2 g/dl (12.0-16.0); Imm Gran Abs Auto 0.01 X10*3/uL (0.00-0.03); Imm Gran Pct Auto 0.1 % (0.0-0.4); Lymphocytes Absolute Auto 2.4 X10*3/uL (1.2-4.9); Lymphocytes Percent Auto 34.9 % (20-40); Mean Corpuscular Hemoglobin 30.7 pg (27.0-33.0); Mean Platelet Volume 10.1 fL (9.4-12.3); Monocytes Absolute Auto 0.7 X10*3/uL (0.1-1.2); Monocytes Percent Auto 10.5 % (2-11); Neutrophils Absolute Auto 3.6 x10*3/uL (2.0-8.3); Neutrophils Percent Auto 52.1 % (45-73); Platelet Count 300 X10*3/uL (160-400); Red Cell Distribution Width 13.2 % (11.0-16.0); White Blood Count 6.9 X10*3/uL (4.8-10.8)
[2021-06-02 15:16] LABS: Estimated Average Glucose 103 mg/dL; Hemoglobin A1c % 5.2 %
[2021-06-02 15:28] LABS: Anion Gap 11 (12-20); Blood Urea Nitrogen 18 mg/dL (9-16); Calcium 9.6 mg/dL (8.4-10.2); Carbon Dioxide 29 mmol/L (22-29); Chloride 105 mmol/L (96-108); Cholesterol 194 mg/dL; Estimated Glomerular Filt Rate > 60; Glucose Random 88 mg/dL (60-115); HDL Cholesterol 78 mg/dL; Iron 93 mcg/dL (30-160); LDL Cholesterol Calculated 104 mg/dl; Percent Iron Saturation 29 % (15-50); Potassium 4.6 mmol/L (3.3-5.1); Sodium 140 mmol/L (135-145); Total Iron Binding Capacity 319 mcg/dL (228-428); Triglycerides 62 mg/dL; Unsaturated Iron Binding 226 ug/dL
[2021-06-02 15:50] LABS: Ferritin 135 ng/mL (10-250); TSH reflex Free T4 0.73 uIU/mL (0.32-4.0); Vitamin D 25-OH Total 40.9 ng/mL (>30)
[2021-06-02 16:28] LABS: Folate 18.7 ng/mL (> or = 4.0); Vitamin B12 977 pg/mL (200-900)
[2021-06-05 07:11] LABS: Zinc 65 mcg/dL (60-130)
[2021-06-07 00:53] LABS: Vitamin A 31 mcg/dL (38-98)
== END 2021-06-02 13:53 | disposition home or self-care (01) ==
LOC: HO.LAB 13:52
PROVIDERS: PCP Internal Medicine Geriatric Medicine; Visit Provider Physician Assistant Surgical
DX: K91.2 Postsurgical malabsorption, not elsewhere classified (principal); Z90.3 Acquired absence of stomach [part of]
CPT/HCPCS: 36415; 80048; 80061; 82306; 82607; 82728; 82746; 83036; 83540; 84425; 84443; 84590; 84630; 85025

== ENCOUNTER 2021-09-04 16:53 | Outpatient (REF) | payer OTHER, SELFPAY ==
[2021-09-11 13:06] LABS: Vitamin A 39 mcg/dL (38-98)
== END 2021-09-04 16:54 | disposition home or self-care (01) ==
LOC: HO.LAB 16:53
PROVIDERS: PCP Internal Medicine Geriatric Medicine; Visit Provider Physician Assistant Surgical
DX: E50.9 Vitamin A deficiency, unspecified (principal)
CPT/HCPCS: 36415; 84590

== ENCOUNTER → 2021-09-29 13:46 | Outpatient (BNVA) | payer OTHER, SELFPAY | PROVIDERS: PCP Internal Medicine Geriatric Medicine; Visit Provider Physician Assistant Surgical | DX: K91.2 Postsurgical malabsorption, not elsewhere classified (principal); Z90.3 Acquired absence of stomach [part of] ==